=== PATIENT | male | born 1955 | race Caucasian/White ===

== ENCOUNTER 2018-07-02 12:43 | Emergency (ER) | payer BC, OTHER ==
[2018-07-02] MEDS ORDERED: predniSONE 20 MG TAB ONE (13:11)
[2018-07-02] MEDS ORDERED: Piperacillin/Tazobactam 3.375 GM VIAL ONE (13:45)
--- NOTE | 2018-07-03 07:36 | RAD ---
CHEST 2 VIEWS: Date: 07/02/18 Comparison made with the 08/30/16 study. The heart remains normal in size. There is no congestion, edema, or pleural effusion. The lungs are c lear. There is no sign of pneumonia currently. Medial sternotomy sutures are seen from prior study. D egenerative changes are present in the spine. IMPRESSION: No acute thoracic findings. POS: HOME
== END 2018-07-02 14:12 | disposition home or self-care (01) ==
LOC: BURERS 12:43
DX: J20.9 Acute bronchitis, unspecified (principal); F17.210 Nicotine dependence, cigarettes, uncomplicated; I25.2 Old myocardial infarction; Z79.899 Other long term (current) drug therapy; Z79.891 Long term (current) use of opiate analgesic
CPT/HCPCS: 71046; J2543; J3370; J7506; J7620

== ENCOUNTER 2020-12-31 11:12 | Outpatient (CLI) | payer BC | END 2020-12-31 11:13 | disposition home or self-care (01) | LOC: BURRAD 11:12 | PROVIDERS: ATTEND Physician Assistant | DX: Z12.2 Encounter for screening for malignant neoplasm of respiratory organs (principal) | CPT/HCPCS: 71046 ==

== ENCOUNTER 2021-07-17 08:46 | Outpatient (CLI) | payer BC | END 2021-07-17 08:47 | disposition home or self-care (01) | LOC: BURRAD 08:46 | PROVIDERS: ATTEND Physician Assistant | DX: M17.0 Bilateral primary osteoarthritis of knee (principal) ==

== ENCOUNTER 2024-07-02 10:49 | Outpatient (CLI) | payer MEDICARE | END 2024-07-02 10:50 | disposition home or self-care (01) | LOC: BURRAD 10:49 | PROVIDERS: ATTEND Physician Assistant | DX: J20.9 Acute bronchitis, unspecified (principal); R50.9 Fever, unspecified | CPT/HCPCS: 71046 ==